=== PATIENT | female | born 1985 | race Caucasian/White ===

== ENCOUNTER 2024-02-24 07:27 | Observation (INO) ==
--- NOTE | 2024-02-24 07:55 | Emergency Department Note ---
History of Present Illness General Chief complaint: Urinary Symptoms Stated complaint: HIGH FEVER,PAIN LFT SIDE,LEAKING URINE,COUGH Time Seen by Provider: 02/24/24 07:40 History of Present Illness Maximum Pain Intensity: 9 This is a 38-year-old female that presents to the emergency department via private vehicle with complaints of "high fever, left flank pain, leaking urine, cough". Patient presents to us today for evaluation of feeling unwell since this past Thursday. She notes she began with a high fever, Tmax 104 followed by cough, chest discomfort/congestion, pain radiating into her back with a deep breath, left lower flank pain and noting also to be leaking urine. She denies any lower extremity weakness. She denies any bowel incontinence. She denies any numbness/tingling in genital region. The patient denies any abdominal pain. The patient is very concerned as she notes that her grandmother just of some sort of blockage causing sepsis in the recent past. Current pain 9/10. She notes history of Lyme disease previously. History of cholecystectomy, C- section. She notes possible Augmentin allergy. Home Medications Medication Instructions Recorded Confirmed Type meclizine 12.5 mg tablet 12.5 mg PO BID PRN vertigo #30 tabs 11/18/23 02/24/24 Rx multivitamin 1 tab PO DAILY 11/18/23 02/24/24 History Beef Organ Supplement 1 tab PO DIRECTED 02/24/24 02/24/24 History Green Supplement 1 tab PO DIRECTED 02/24/24 02/24/24 History acetaminophen 500 mg tablet 500 mg PO Q6H PRN Pain 02/24/24 02/24/24 History cholecalciferol (vitamin D3) 1,250 50,000 unit PO WK 02/24/24 02/24/24 History mcg (50,000 unit) capsule fluticasone propionate 50 1 spray intranasal DAILY PRN 02/24/24 02/24/24 History mcg/actuation nasal allergies spray,suspension (Flonase Allergy Relief) ibuprofen 200 mg tablet 200 mg PO Q6H PRN Pain 02/24/24 02/24/24 History ipratropium bromide 21 mcg (0.03 2 spray intranasal TID PRN 02/24/24 02/24/24 History %) nasal spray allergies Allergies Allergy/AdvReac Type Severity Reaction Status Date / Time clavulanic acid AdvReac Intermediate Itching Verified 12/03/23 13:31 Sulfa (Sulfonamide AdvReac Mild Itching Verified 12/03/23 07:59 Antibiotics) Past Med/Surg History Problem List (Updated 02/24/24 @ 16:46 by Michael Tsang PA-C) Left flank pain (Acute) Urinary incontinence (Acute) Febrile illness (Acute) Hypercholesteremia Prediabetes Vitamin D deficiency Cobalamin deficiency Vertigo Medical History Hx gestational diabetes History of Lyme disease Surgical History S/P LASIK surgery of both eyes History of cholecystectomy H/O wisdom tooth extraction History of Family History Aunt Breast cancer Grandfather (Maternal) Cancer Aunt Ovarian cancer Social History Smoking Status: Never smoker Tobacco Type: Cigarettes and E-cigarettes / Vaping Age Started Using Tobacco: 16; Age Quit Using Tobacco: 36; packs per day: 0.25; Cigarettes Per Day: 5; Second Hand Exposure: Yes (Grandparents smoked. 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 ) Diet: regular caffeine: Yes during the past year weight has: remained stable Dental Care, Regularly: Yes Physical Activity Frequency: Daily Physical Activity Frequency Comment: Has little kids constantly moving. Seatbelt Use: always Sunscreen Use: Yes Do you think of yourself as: straight/heterosexual Sexual Activity: has been sexually active within the last 12 months Gender Identity: Female Assistive Devices: None Review of Systems A total of 10 systems reviewed and were otherwise negative Physical Exam Vital Signs Vital Signs - 24 hr 02/24/24 07:33 02/24/24 08:11 02/24/24 08:21 Temperature 36.8 C Temperature Source Oral Pulse Rate 114 H 102 H Pulse Rate [Apical] 94 H Pulse Rate from SpO2 Sensor Pulse Rhythm Regular Pulse Strength Normal Respiratory Rate 20 20 Respiratory Effort / Characteristics Non-Labored Spontaneous Non-Labored Respiratory Depth Normal Normal Respiratory Pattern Regular Blood Pressure 139/75 Blood Pressure [Right Arm] 120/79 Blood Pressure Mean 96 Blood Pressure Mean [Right Arm] 92 Pulse Oximetry 96 97 Oxygen Delivery Method Room Air Room Air Sepsis Recent Fever Within 48 Hours No Sepsis New/Unexplained Change in Mental Status N/A Sepsis Action Taken by Nursing No Action Required 02/24/24 10:16 02/24/24 10:35 02/24/24 11:03 Temperature 37.1 C Temperature Source Oral Pulse Rate 99 H Pulse Rate [Apical] 118 H 103 H Pulse Rate from SpO2 Sensor Pulse Rhythm Pulse Strength Respiratory Rate 20 16 20 Respiratory Effort / Characteristics Non-Labored Non-Labored Respiratory Depth Normal Normal Respiratory Pattern Blood Pressure 131/86 Blood Pressure [Right Arm] 119/95 128/84 Blood Pressure Mean 101 Blood Pressure Mean [Right Arm] 103 98 Pulse Oximetry 98 98 98 Oxygen Delivery Method Room Air Room Air Sepsis Recent Fever Within 48 Hours Sepsis New/Unexplained Change in Mental Status Sepsis Action Taken by Nursing 02/24/24 11:33 02/24/24 13:27 02/24/24 14:06 Temperature Temperature Source Pulse Rate 96 H 101 H 102 H Pulse Rate [Apical] Pulse Rate from SpO2 Sensor 97 H 101 H Pulse Rhythm Pulse Strength Respiratory Rate 17 15 22 Respiratory Effort / Characteristics Respiratory Depth Respiratory Pattern Blood Pressure 124/83 119/76 122/86 Blood Pressure [Right Arm] Blood Pressure Mean 96 90 98 Blood Pressure Mean [Right Arm] Pulse Oximetry 99 96 97 Oxygen Delivery Method Sepsis Recent Fever Within 48 Hours Sepsis New/Unexplained Change in Mental Status Sepsis Action Taken by Nursing VITAL SIGNS - Vital signs and nursing notes were reviewed. Overall stable and afebrile, tachycardic. GENERAL - 38-year-old female appearing her stated age who is in no acute distress. Communicates well with provider and answers questions appropriately. SKIN - Without rashes. HEAD - NC/AT. EYES - PERRL with EOMI bilaterally. Sclera anicteric. EARS - No deformities of external structures noted on gross examination bilaterally. External auditory canals without discharge or otorrhea. Tympanic membranes pearly venegas without retraction or bulging. No fluid or purulent material visualized behind the TM. Handle of malleus, umbo, cone of light, pars tensa/flaccid all easily visualized. NOSE - Midline and without cyanosis. No epistaxis or purulent drainage noted. Septum midline without deviation or septal hematoma noted. MOUTH/OROPHARYNX - Without perioral cyanosis. NECK - Neck with FROM. No nuchal rigidity. LUNGS - Chest wall symmetric without accessory muscle use, intercostals retractions, or central cyanosis. Normal vesicular breath sounds CTA B/L. No wheezes, rales, or rhonchi appreciated. CARDIAC - tachycardic ABDOMEN - Abdominal contour normal without pulsations or visible masses. BS normoactive all four quadrants. No tenderness, palpable masses, hepatosplenomegaly, or ascites noted. EXTREMITIES - No clubbing or peripheral cyanosis. +5/5 strength noted in UE/LE bilaterally. NEUROLOGIC - Cranial nerves grossly intact. Patellar reflexes within normal limits. Patient ambulatory. She is able to axial load and ambulate independently. PSYCH -alert, oriented and pleasant on exam Course Administered Medications Discontinued Medications Gadobutrol (Gadobutrol 65ml Vial) 8.5 ml IV ONCE ONE Stop: 02/24/24 13:01 Last Admin: 02/24/24 13:01 Dose: 8.5 ml Documented By: XIANG Sodium Chloride (Nss) 1,000 mls @ 999 mls/hr IV .Q1H1M ONE Stop: 02/24/24 08:43 Last Infusion: 02/24/24 09:32 Dose: Infused Documented By: Admin: 02/24/24 08:11 Dose: 999 mls/hr Documented By: HIMANSHU Sodium Chloride (Nss) 1,000 mls @ 999 mls/hr IV .Q1H1M ONE Stop: 02/24/24 11:31 Last Infusion: 02/24/24 13:15 Dose: Infused Documented By: Admin: 02/24/24 10:35 Dose: 999 mls/hr Documented By: JESUSITA Ioversol (Optiray 320 125ml) 112 ml IV ONCE ONE Stop: 02/24/24 09:39 Last Admin: 02/24/24 09:39 Dose: 112 ml Documented By: KATTY Ketorolac Tromethamine (Ketorolac Tromethamine 15 Mg/Ml Vial) 10 mg IV NOW ONE Stop: 02/24/24 10:59 Last Admin: 02/24/24 11:24 Dose: 10 mg Documented By: GEORGE Lorazepam (Lorazepam 1 Mg Tab) 0.5 mg SL NOW STA Stop: 02/24/24 10:59 Last Admin: 02/24/24 11:23 Dose: 0.5 mg Documented By: GEORGE Medical Decision Making Laboratory Data 02/24/24 08:25 02/24/24 08:25 Lab Results 02/24/24 02/24/24 02/24/24 Range/Units 08:10 08:11 08:25 WBC 7.35 (4.8-10.8) K/ul RBC 4.66 (4.20-5.40) M/uL Hgb 14.1 (12.0-16.0) g/dl Hct 41.8 (37.0-47.0) % MCV 89.7 (80.0-100.0) fL MCH 30.3 (25.0-34.0) pg MCHC 33.7 (32.0-36.0) g/dL RDW Std Deviation 44.4 (36.4-46.3) fL RDW Coeff of Anuj 13.6 (11.5-14.5) % Plt Count 245 (130-400) K/uL MPV 9.6 (9.4-12.4) fL Immature Gran % (Auto) 0.4 % Neut % (Auto) 75.2 % Lymph % (Auto) 18.2 % Preble % (Auto) 6.0 % Eos % (Auto) 0.1 % Baso % (Auto) 0.1 % Neut # (Auto) 5.52 (1.40-6.50) K/uL Lymph # (Auto) 1.34 (1.20-3.40) K/uL Preble # (Auto) 0.44 (0.11-0.59) K/uL Eos # (Auto) 0.01 (0.00-0.50) K/uL Baso # (Auto) 0.01 (0.00-0.20) K/uL Immature Gran # (Auto) 0.03 (0.01-0.20) K/uL Peripher Smr Path Cons Sodium (136-145) mmol/L Potassium (3.5-5.1) mmol/L Chloride (98-107) mmol/L Carbon Dioxide (21-32) mmol/L Anion Gap (3-11) BUN (6-23) mg/dl Creatinine (0.6-1.2) mg/dl Est Cr Clr Drug Dosing ml/min eGFR BUN/Creatinine Ratio (10-20) Glucose (70-99(Fasting)) mg/dl Lactate (0.4-2.0) mmol/L Calcium (8.6-10.3) mg/dl Total Bilirubin (0.2-1.0) mg/dl AST (13-39) U/L ALT (7-52) U/L Alkaline Phosphatase (34-104) U/L Troponin I High Sens (0-14) pg/ml C-Reactive Protein (0-0.5) mg/dl Total Protein (6.0-8.3) gm/dl Albumin (3.4-5.0) gm/dl Globulin (2.5-4.0) gm/dl Albumin/Globulin Ratio (0.9-2) Procalcitonin (0-0.5) ng/ml HCG, Qual (Negative) Urine Color Yellow Urine Appearance Clear (Clear) Urine pH 6.5 (4.5-7.5) Ur Specific Vernon 1.023 (1.000-1.030) Urine Protein 1+ H (Negative) Urine Glucose (UA) Negative (Negative) Urine Ketones Negative (Negative) Urine Blood Negative (Negative) Urine Nitrite Negative (Negative) Urine Bilirubin Negative (Negative) Urine Urobilinogen Negative (Negative) Ur Leukocyte Esterase Negative (Negative) Urine WBC (Auto) 0-5 (0-5) /hpf Urine RBC (Auto) 0-2 (0-2) /hpf U Hyaline Cast (Auto) 0-2 (0-2) /lpf U Epithel Cells (Auto) 0-2 (0-2) /hpf Urine Bacteria (Auto) None Seen (None Seen) Adenovirus (PCR) Not Detected (NotDetected) B. pertussis DNA (PCR) Not Detected (NotDetected) B.parapertussis DNA PCR Not Detected (NotDetected) Lyme Disease Screen (Negative) C. pneumoniae DNA (PCR) Not Detected (NotDetected) Coronavirus OC43 (PCR) Not Detected (NotDetected) Coronavirus HKU1 (PCR) Not Detected (NotDetected) Coronavirus 229E (PCR) Not Detected (NotDetected) SARS-CoV-2 (PCR) Not Detected (NotDetected) Coronavirus NL63 (PCR) Not Detected (NotDetected) Monoscreen (Negative) Human Metapneumovir PCR Not Detected (NotDetected) Influenza Type A (PCR) Not Detected (NotDetected) Influenza Type B (PCR) Not Detected (NotDetected) M. pneumoniae (PCR) Not Detected (NotDetected) Parainfluenza 1 (PCR) Not Detected (NotDetected) Parainfluenza 2 (PCR) Not Detected (NotDetected) Parainfluenza 3 (PCR) Not Detected (NotDetected) Parainfluenza 4 (PCR) Not Detected (NotDetected) RSV (PCR) Not Detected (NotDetected) Entero/Rhino (PCR) Not Detected (NotDetected) Group A Strep (PCR) (NotDetected) 02/24/24 02/24/24 02/24/24 Range/Units 08:25 08:30 11:30 WBC (4.8-10.8) K/ul RBC (4.20-5.40) M/uL Hgb (12.0-16.0) g/dl Hct (37.0-47.0) % MCV (80.0-100.0) fL MCH (25.0-34.0) pg MCHC (32.0-36.0) g/dL RDW Std Deviation (36.4-46.3) fL RDW Coeff of Anuj (11.5-14.5) % Plt Count (130-400) K/uL MPV (9.4-12.4) fL Immature Gran % (Auto) % Neut % (Auto) % Lymph % (Auto) % Preble % (Auto) % Eos % (Auto) % Baso % (Auto) % Neut # (Auto) (1.40-6.50) K/uL Lymph # (Auto) (1.20-3.40) K/uL Preble # (Auto) (0.11-0.59) K/uL Eos # (Auto) (0.00-0.50) K/uL Baso # (Auto) (0.00-0.20) K/uL Immature Gran # (Auto) (0.01-0.20) K/uL Peripher Smr Path Cons Cancelled Sodium 136 (136-145) mmol/L Potassium 3.7 (3.5-5.1) mmol/L Chloride 103 (98-107) mmol/L Carbon Dioxide 26 (21-32) mmol/L Anion Gap 7 (3-11) BUN 9 (6-23) mg/dl Creatinine 0.70 (0.6-1.2) mg/dl Est Cr Clr Drug Dosing 118.3 ml/min eGFR 113.46 BUN/Creatinine Ratio 12.9 (10-20) Glucose 111 H (70-99(Fasting)) mg/dl Lactate 0.6 (0.4-2.0) mmol/L Calcium 9.1 (8.6-10.3) mg/dl Total Bilirubin 0.3 (0.2-1.0) mg/dl AST 18 (13-39) U/L ALT 17 (7-52) U/L Alkaline Phosphatase 90 (34-104) U/L Troponin I High Sens 6.3 (0-14) pg/ml C-Reactive Protein 11.28 H (0-0.5) mg/dl Total Protein 7.7 (6.0-8.3) gm/dl Albumin 4.2 (3.4-5.0) gm/dl Globulin 3.5 (2.5-4.0) gm/dl Albumin/Globulin Ratio 1.2 (0.9-2) Procalcitonin 0.11 (0-0.5) ng/ml HCG, Qual Negative (Negative) Urine Color Urine Appearance (Clear) Urine pH (4.5-7.5) Ur Specific Vernon (1.000-1.030) Urine Protein (Negative) Urine Glucose (UA) (Negative) Urine Ketones (Negative) Urine Blood (Negative) Urine Nitrite (Negative) Urine Bilirubin (Negative) Urine Urobilinogen (Negative) Ur Leukocyte Esterase (Negative) Urine WBC (Auto) (0-5) /hpf Urine RBC (Auto) (0-2) /hpf U Hyaline Cast (Auto) (0-2) /lpf U Epithel Cells (Auto) (0-2) /hpf Urine Bacteria (Auto) (None Seen) Adenovirus (PCR) (NotDetected) B. pertussis DNA (PCR) (NotDetected) B.parapertussis DNA PCR (NotDetected) Lyme Disease Screen Negative (Negative) C. pneumoniae DNA (PCR) (NotDetected) Coronavirus OC43 (PCR) (NotDetected) Coronavirus HKU1 (PCR) (NotDetected) Coronavirus 229E (PCR) (NotDetected) SARS-CoV-2 (PCR) (NotDetected) Coronavirus NL63 (PCR) (NotDetected) Monoscreen Negative (Negative) Human Metapneumovir PCR (NotDetected) Influenza Type A (PCR) (NotDetected) Influenza Type B (PCR) (NotDetected) M. pneumoniae (PCR) (NotDetected) Parainfluenza 1 (PCR) (NotDetected) Parainfluenza 2 (PCR) (NotDetected) Parainfluenza 3 (PCR) (NotDetected) Parainfluenza 4 (PCR) (NotDetected) RSV (PCR) (NotDetected) Entero/Rhino (PCR) (NotDetected) Group A Strep (PCR) NOT DETECTED (NotDetected) Imaging Data Radiologist's Impression: Abdomen/Pelvis CT 02/24/24 07:50 CT abd pelvis IV con only CLINICAL HISTORY: L flank pain, urinary incontinence, fever TECHNIQUE: Helical axial images of the abdomen and pelvis were obtained and displayed. Automated dose lowering techniques and/or adjustment according to patient size were utilized for this exam. This exam was performed with intravenous contrast. COMPARISON: None available at the time of this dictation. FINDINGS: Lower chest: For findings above the diaphragm, please see CT chest performed same day. Liver: Focal fatty changes are noted about the falciform ligament. Gallbladder and biliary tree: Patient is status post cholecystectomy. No intra- or extrahepatic biliary ductal dilation. Pancreas: Unremarkable, no focal lesions. Spleen: Unremarkable. Adrenals: Unremarkable. Kidneys and ureters: Nonobstructive nephrolithiasis is seen. No evidence of inhomogeneous enhancement to suggest pyelonephritis. Bladder: Unremarkable. Reproductive organs: Incidentally noted is a enhancing focus in the right adnexa which may represent an involuting cyst. Bowel: The appendix is normal. Lymph nodes Retroperitoneal: Unremarkable. Pelvic: Unremarkable. Mesenteric: Unremarkable. Peritoneum: Normal. Vessels: Unremarkable. Abdominal wall: Unremarkable. Bones: Degenerative changes in the visualized spine. IMPRESSION: No acute abnormalities. No evidence of obstructive stone in the left kidney and no evidence of pyelonephritis. Nonobstructive nephrolithiasis is seen. ACT 112: Negative or not required by law. Electronically signed by: Logan Brantley M.D. 02/24/2024 10:13 AM Chest CTA 02/24/24 07:50 CT ANGIOGRAPHY OF THE CHEST, PULMONARY EMBOLUS PROTOCOL CLINICAL HISTORY: Left flank pain, chest pain, pain with deep breath. COMPARISON STUDY: No previous studies for comparison. TECHNIQUE: Following IV administration of 112 mL of Optiray, helical axial images of the chest were obtained utilizing the pulmonary embolus protocol. Maximal intensity projections and sagittal and coronal reformats were viewed on an independent 3D workstation. IV contrast was administered without complication. Automated exposure control was utilized for the study. A dose lowering technique was utilized adhering to the principles of ALARA. CT DOSE: 2253.8 mGy.cm FINDINGS: No pulmonary emboli are identified. There is no thoracic aortic dissection. Size of the heart is normal. No enlarged axillary, mediastinal or hilar lymph nodes are present. There is no consolidation to suggest pneumonia. No pneumothorax or pleural effusion is present. Ground glass opacities within lungs favor atelectasis. No acute fractures within the bony thorax are present. Abdomen and pelvis CT will be reported separately. The gallbladder is surgically absent. IMPRESSION: 1. No pulmonary emboli identified. 2. No acute intrathoracic findings. ACT 112: Negative or not required by law. Electronically signed by: Igor Bernardo M.D. 02/24/2024 10:16 AM Lumbar Spine MRI 02/24/24 10:31 MR lumbar spine wo/w con CLINICAL HISTORY: 38 years-old Female with Fever, back pain, urinary incontinence. Acute mid back pain with fever COMPARISON: CT abdomen and pelvis of same day, MRI thoracic spine of same day TECHNIQUE: Multiplanar, multi sequence MRI of the lumbar spine was performed with and without intravenous contrast. FINDINGS: The lumbar alignment is normal. The vertebral body heights are normal. There is no T1 fracture line or marrow replacement process. The conus terminates at L1. The visualized spinal cord and cauda equina are normal. There is no paraspinal edema, mass, or prevertebral fluid collection. The intra-abdominal structures are grossly unremarkable, dictated separately on the same day CT study. No abnormal enhancement. Minimal lumbar levoscoliosis of a few degrees. There is minimal multilevel spondylitic spurring and facet arthrosis. T12-L1: No central canal or neural foraminal stenosis. L1-L2: No central canal or neural foraminal stenosis. L2-L3: No central canal or neural foraminal stenosis. L3-L4: No central canal or neural foraminal stenosis. L4-L5: Mild disc desiccation with spondylitic spurring. Small posterior annular disc bulge is present along with ligamentum flavum flavum thickening, and facet arthrosis with trace facet effusions. Central canal and right neural foramen are patent. Mild left foraminal stenosis. L5-S1: No central canal or neural foraminal stenosis. IMPRESSION: 1. Mild discogenic degeneration at L4-L5 with resultant mild left foraminal stenosis. 2. Patent central canal. 3. No abnormal enhancement, bone marrow or soft tissue edema. ACT 112: Negative or not required by law. The above report was generated using voice recognition software. It may contain grammatical, syntax or spelling errors. Electronically signed by: Vicente Becerril M.D. 02/24/2024 1:57 PM Thoracic Spine MRI 02/24/24 11:25 MR thoracic spine wo/w con HISTORY: 38 years-old Female back pain, fever, r/o abscess. TTP T6-T10 acute mid back pain with fever COMPARISON: MR lumbar spine of same day, CTA chest of same day TECHNIQUE: Multiplanar multisequence MRI of the thoracic spine was obtained with and without IV contrast FINDINGS: Study is mildly motion degraded. Conus medullaris terminates at the L1 level. There is mild cystic dilation of the central thoracic spinal cord at T9-T10 extending for a length of 2.8 cm in length, 1 x 1 mm in AP and transverse dimension. No acute fracture, subluxation, endplate erosion or marrow replacing process. No epidural or paraspinal fluid collections. The intervertebral disc spaces are well preserved. No significant annular disc bulging, central canal or foraminal narrowing. No abnormal enhancement. IMPRESSION: 1. Unremarkable exam. No MR evidence of acute discitis/osteomyelitis. 2. No significant degenerative changes or abnormal enhancement. ACT 112: Negative or not required by law. The above report was generated using voice recognition software. It may contain grammatical, syntax or spelling errors. Electronically signed by: Vicente Becerril M.D. 02/24/2024 1:42 PM MDM Narrative Patient was seen and evaluated as above in room B02. Review was performed of triage nursing notes and vital signs. Patient presents for evaluation of fever, cough, left flank pain, urinary incontinence. Patient ill-appearing. Tachycardic on arrival. IV access with established. Labs are drawn. IV hydration ordered. CTA chest as well as abdomen/pelvis with IV contrast was ordered. Results as above. These were essentially negative. Pain managed with IV Toradol. EKG reveals normal sinus rhythm at a rate of 92 bpm. QTc 430. QRS 84. No ST elevation. Urinalysis does not suggest infection. BioFire negative. Patient does not appear to be retaining urine. Labs reveal no leukocytosis or concerning anemia. No emergent metabolic disturbance. Troponin negative. I do believe that MRI of the L-spine is warranted with and without contrast noting fever and urinary incontinence. Plan is admission at this time for further assessment. Blood culture pending. Case discussed with the hospitalist. Please refer to further documentation regarding her stay. Will temporarily hold on antibiotics pending MRI result. GCS: 15 In the evaluation and treatment of this patient the following differential diagnoses were entertained: Bacteremia, discitis, viral URI, pneumonia, PE, kidney stone, UTI, among others. Impression & Plan Febrile illness, Urinary incontinence, Left flank pain Discharge Plan Visit Data Chief Complaint: Urinary Symptoms Stated Complaint: HIGH FEVER,PAIN LFT SIDE,LEAKING URINE,COUGH ED Provider: José Miguel Munoz ED Midlevel Provider: Michael Tsang Discharge Problem: Febrile illness, Urinary incontinence, Left flank pain Patient Disposition: Admitted As Inpatient Discharge Instructions Interventions: ED Discharge Assessment Last Done: 02/24/24 16:08
[2024-02-24] MEDS: SODIUM CHLORIDE 0.9% 1,000 ML IV ONE ×2 (08:11→10:35)
[2024-02-24 08:57] LABS: Appearance Urine Clear (Clear); Bacteria Urine Automated None Seen (None Seen); Bilirubin Urine Negative (Negative); Blood Urine Negative (Negative); Cast Urine Automated 0-2 /lpf (0-2); Color Urine Yellow; Epithelial Cell Urine Auto 0-2 /hpf (0-2); Glucose Urine UA Negative (Negative); Ketones Urine Negative (Negative); Leukocyte Esterase Urine Negative (Negative); Nitrite Urine Negative (Negative); Protein Urine 1+ (Negative); RBC Urine Automated 0-2 /hpf (0-2); Specific Gravity Urine 1.023 (1.000-1.030); Urobilinogen Urine Negative (Negative); WBC Urine Automated 0-5 /hpf (0-5); pH Urine 6.5 (4.5-7.5)
[2024-02-24 09:07] LABS: Basophils # (auto) 0.01 K/uL (0.00-0.20); Basophils % (auto) 0.1 %; Eosinophils # (auto) 0.01 K/uL (0.00-0.50); Eosinophils % (auto) 0.1 %; Hematocrit (blood only) 41.8 % (37.0-47.0); Hemoglobin 14.1 g/dl (12.0-16.0); Immature Granulocytes # (auto) 0.03 K/uL (0.01-0.20); Immature Granulocytes % (auto) 0.4 %; Lymphocytes # (auto) 1.34 K/uL (1.20-3.40); Lymphocytes % (auto) 18.2 %; Mean Corpuscular Hemoglobin 30.3 pg (25.0-34.0); Mean Corpuscular Hgb Conc 33.7 g/dL (32.0-36.0); Mean Corpuscular Volume 89.7 fL (80.0-100.0); Mean Platelet Volume 9.6 fL (9.4-12.4); Monocytes # (auto) 0.44 K/uL (0.11-0.59); Neutrophils # (auto) 5.52 K/uL (1.40-6.50); Neutrophils % (auto) 75.2 %; Platelet Count 245 K/uL (130-400); RDW Coefficient of Variation 13.6 % (11.5-14.5); RDW Standard Deviation 44.4 fL (36.4-46.3); Red Blood Count 4.66 M/uL (4.20-5.40); White Blood Count 7.35 K/ul (4.8-10.8)
[2024-02-24 09:18] LABS: Pregnancy Test, Serum Negative (Negative)
[2024-02-24 09:29] LABS: Albumin Globulin Ratio 1.2 (0.9-2); Albumin Level 4.2 gm/dl (3.4-5.0); BUN Creatinine Ratio 12.9 (10-20); Bilirubin,Total 0.3 mg/dl (0.2-1.0); Calcium 9.1 mg/dl (8.6-10.3); Creatinine Clr Calc Pharmacy 118.3 ml/min; Globulin 3.5 gm/dl (2.5-4.0); Potassium 3.7 mmol/L (3.5-5.1); Total Protein 7.7 gm/dl (6.0-8.3)
[2024-02-24 09:36] LABS: Troponin I High Sensitivity 6.3 pg/ml (0-14)
[2024-02-24] MEDS: OPTIRAY 320 125ml IV ONE (09:39)
[2024-02-24 09:43] LABS: Adenovirus PCR Not Detected (NotDetected); Bordetella parapertussis PCR Not Detected (NotDetected); Bordetella pertussis PCR Not Detected (NotDetected); Chlamydia pneumoniae PCR Not Detected (NotDetected); Coronavirus 229E PCR Not Detected (NotDetected); Coronavirus CoV-2 (COVID19)PCR Not Detected (NotDetected); Coronavirus HKU1 PCR Not Detected (NotDetected); Coronavirus NL63 PCR Not Detected (NotDetected); Coronavirus OC43PCR Not Detected (NotDetected); Human Metapneumovirus PCR Not Detected (NotDetected); Influenza A PCR Not Detected (NotDetected); Influenza B PCR Not Detected (NotDetected); Mycoplasma pneumoniae PCR Not Detected (NotDetected); Parainfluenza Virus 1 PCR Not Detected (NotDetected); Parainfluenza Virus 2 PCR Not Detected (NotDetected); Parainfluenza Virus 3 PCR Not Detected (NotDetected); Parainfluenza Virus 4 PCR Not Detected (NotDetected); Respiratory Syncytial VirusPCR Not Detected (NotDetected); Rhinovirus/Enterovirus PCR Not Detected (NotDetected)
--- NOTE | 2024-02-24 10:14 | CT Scan Report ---
CT abd pelvis IV con only CLINICAL HISTORY: L flank pain, urinary incontinence, fever TECHNIQUE: Helical axial images of the abdomen and pelvis were obtained and displayed. Automated dose lowering techniques and/or adjustment according to patient size were utilized for this exam. This e xam was performed with intravenous contrast. COMPARISON: None available at the time of this dictation. FINDINGS: Lower chest: For findings above the diaphragm, please see CT chest performed same day. Liver: Focal fatty changes are noted about the falciform ligament. Gallbladder and biliary tree: Patient is status post cholecystectomy. No intra- or extrahepatic bilia ry ductal dilation. Pancreas: Unremarkable, no focal lesions. Spleen: Unremarkable. Adrenals: Unremarkable. Kidneys and ureters: Nonobstructive nephrolithiasis is seen. No evidence of inhomogeneous enhancement to suggest pyelonephritis. Bladder: Unremarkable. Reproductive organs: Incidentally noted is a enhancing focus in the right adnexa which may represent an involuting cyst. Bowel: The appendix is normal. Lymph nodes Retroperitoneal: Unremarkable. Pelvic: Unremarkable. Mesenteric: Unremarkable. Peritoneum: Normal. Vessels: Unremarkable. Abdominal wall: Unremarkable. Bones: Degenerative changes in the visualized spine. IMPRESSION: No acute abnormalities. No evidence of obstructive stone in the left kidney and no evidence of pyelon ephritis. Nonobstructive nephrolithiasis is seen. ACT 112: Negative or not required by law. Electronically signed by: Logan Brantley M.D. 02/24/2024 10:13 AM
--- NOTE | 2024-02-24 10:18 | CT Scan Report ---
CT ANGIOGRAPHY OF THE CHEST, PULMONARY EMBOLUS PROTOCOL CLINICAL HISTORY: Left flank pain, chest pain, pain with deep breath. COMPARISON STUDY: No previous studies for comparison. TECHNIQUE: Following IV administration of 112 mL of Optiray, helical axial images of the chest were o btained utilizing the pulmonary embolus protocol. Maximal intensity projections and sagittal and cor onal reformats were viewed on an independent 3D workstation. IV contrast was administered without co mplication. Automated exposure control was utilized for the study. A dose lowering technique was ut ilized adhering to the principles of ALARA. CT DOSE: 2253.8 mGy.cm FINDINGS: No pulmonary emboli are identified. There is no thoracic aortic dissection. Size of the he art is normal. No enlarged axillary, mediastinal or hilar lymph nodes are present. There is no consol idation to suggest pneumonia. No pneumothorax or pleural effusion is present. Ground glass opacities within lungs favor atelectasis. No acute fractures within the bony thorax are present. Abdomen and pe lvis CT will be reported separately. The gallbladder is surgically absent. IMPRESSION: 1. No pulmonary emboli identified. 2. No acute intrathoracic findings. ACT 112: Negative or not required by law. Electronically signed by: Igor Bernardo M.D. 02/24/2024 10:16 AM
--- NOTE | 2024-02-24 10:59 | History & Physical Report ---
Date of Service February 24, 2024 Assessment & Plan (1) Febrile illness: Plan: Intermittent fever up to 104 F that started on Monday 02/19 She also endorses chills, night sweats, rigors, and a sharp pain in her left posterior rib cage with deep breaths Patient's initial labs and imaging appear reassuring/unremarkable No leukocytosis; negative procalcitonin and lactate Chest CTA without evidence of pulmonary embolism BioFire negative Monospot negative Strep PCR ordered, pending Tickborne panel/peripheral smear ordered, pending Blood cultures ordered, pending While patient's initial labs and imaging are reassuring/unremarkable, she does appear quite ill on clinical exam Will plan to admit patient on observation with blood cultures and lumbar/thoracic MRI still pending DDx on arrival includes viral illness and spinal infection (among other etiologies) Supportive care Acetaminophen as needed for pain/fever Toradol as needed for breakthrough pain A.m. CBC, BMP, CRP (2) Urinary incontinence: Plan: Patient reports she has been "dribbling" urine in the setting of her fever While she does have a h/o dribbling with coughing and sneezing (likely stress incontinence after having her children), she reports this is now occurring at rest without any provocation Patient denies saddle anesthesia A/P CT reveals no acute abnormalities or evidence of kidney stone/pyelonephritis Lumbar/thoracic MRI with and without contrast ordered, pending Plan Disposition: Obs - admit to [facility] telemetry Full code Regular diet VTE PPx: Low risk, encourage ambulation History of Present Illness Chief Complaint: Fever of unknown origin, urinary symptoms Primary Care Provider: SHAHANA Crowder Carolin is a 38-year-old female with PMH of vertigo, hypercholesteremia, and prediabetes. She presented on 02/23 for a febrile illness that developed on Monday 02/19. Her fever got up to 104 F on Thursday and lasted approximately 14 hours before breaking. She is then had intermittent fevers since this time. She has been rotating ibuprofen and Tylenol [id number] every 3-4 hours, which she is also taking for her back/left flank pain. She reports that taking deep breaths causes a sharp pain in her left middle back. No prior history of DVT/PE. No recent injuries to the chest wall or back to her knowledge. Additionally, she reports she has had some episodes of urinary incontinence; she has been "dribbling" urine since her fever started. She does have a history of leaking urine ever since she had her kids whenever she coughs or sneezes, however she specifically says that she has been dribbling urine without coughing and sneezing while she has been sick. She denies saddle anesthesia. While she does endorse generalized bodyaches, joint pain, and neck pain on the left side, she denies photophobia. Her children have recently been sick; her 8-main old recently got antibiotics for an ear infection, and her 4-year-old has been having a runny nose at daycare. She denies smoking, tobacco use, recent alcohol use. No supplemental oxygen or CPAP at baseline. She has had MRIs in the past and reports no metal in her body; no pacemaker. Patient is tachycardic around 103 bpm at time admission; vitals otherwise stable. ED course: NSS 1000 mL IV x 2 Toradol 10 mg IV Lorazepam 0.5 mg SL ROS: Patient endorses fever, chills, night-sweats, rigors, mild headaches, congestion, dry cough, chest pressure, back pressure, body aches, joint pain, pleuritic CP (causes "stabbing" pain in her left middle back, close to the bottom of her rib cage), nausea, and diarrhea (started this week). Patient denies lightheadedness, dizziness, rashes, tickbites, photophobia, hemoptysis, abdominal pain, vomiting, melena, blood in the urine/stool, burning with urination, or numbness/tingling in the arms or legs. Allergies Allergy/AdvReac Type Severity Reaction Status Date / Time clavulanic acid AdvReac Intermediate Itching Verified 12/03/23 13:31 Sulfa (Sulfonamide AdvReac Mild Itching Verified 12/03/23 07:59 Antibiotics) Home Medications Medication Instructions Recorded Confirmed Type meclizine 12.5 mg tablet 12.5 mg PO BID PRN vertigo #30 tabs 11/18/23 02/24/24 Rx multivitamin 1 tab PO DAILY 11/18/23 02/24/24 History Beef Organ Supplement 1 tab PO DIRECTED 02/24/24 02/24/24 History Green Supplement 1 tab PO DIRECTED 02/24/24 02/24/24 History acetaminophen 500 mg tablet 500 mg PO Q6H PRN Pain 02/24/24 02/24/24 History cholecalciferol (vitamin D3) 1,250 50,000 unit PO WK 02/24/24 02/24/24 History mcg (50,000 unit) capsule fluticasone propionate 50 1 spray intranasal DAILY PRN 02/24/24 02/24/24 History mcg/actuation nasal allergies spray,suspension (Flonase Allergy Relief) ibuprofen 200 mg tablet 200 mg PO Q6H PRN Pain 02/24/24 02/24/24 History ipratropium bromide 21 mcg (0.03 2 spray intranasal TID PRN 02/24/24 02/24/24 History %) nasal spray allergies Past Med/Surg History Problem List (Updated 02/24/24 @ 11:49 by Tremaine Puckett PA-C) Urinary incontinence Febrile illness Hypercholesteremia Prediabetes Vitamin D deficiency Cobalamin deficiency Vertigo Medical History Hx gestational diabetes History of Lyme disease Surgical History S/P LASIK surgery of both eyes History of cholecystectomy H/O wisdom tooth extraction History of Family History Aunt Breast cancer Grandfather (Maternal) Cancer Aunt Ovarian cancer Social History Smoking Status: Never smoker Tobacco Type: Cigarettes and E-cigarettes / Vaping Age Started Using Tobacco: 16; Age Quit Using Tobacco: 36; packs per day: 0.25; Cigarettes Per Day: 5; Second Hand Exposure: Yes (Grandparents smoked. ); Do You Dip or Chew Tobacco: No; Hx Alcohol Use: Yes Alcohol type: beer Alcohol Intake Frequency: Monthly or Less Hx Substance Use: No Preferred Language: Mexican Communication Ability: Effective Visual Impairment: No Limitations Hearing Ability: Normal Gage Designer Required: No Beliefs That Will Affect Care: None marital status: Single Current Living Situation: Family and Significant Other current occupational status: employed How many Children do You have: 2 Feels Safe at Home: Yes Childhood Exposure to Second-Hand Smoke: Yes (Grandparents smoked. ) Diet: regular caffeine: Yes during the past year weight has: remained stable Dental Care, Regularly: Yes Physical Activity Frequency: Daily Physical Activity Frequency Comment: Has little kids constantly moving. Seatbelt Use: always Sunscreen Use: Yes Do you think of yourself as: straight/heterosexual Sexual Activity: has been sexually active within the last 12 months Gender Identity: Female Assistive Devices: None Review of Systems Review of Systems: See HPI above Physical Exam Physical Exam: General: no acute distress; pleasant affect; anxious; father at bedside; non- toxic appearing; well-nourished; cooperative; SpO2 90% on RA HEENT: normocephalic, atraumatic; no scleral icterus; PERRLA; vision and hearing grossly intact Neck: supple; no lymphadenopathy; trachea midline Skin: warm, dry without signs of tenting; no cyanosis; no rashes, bruising, lesions, or erythema noted CV: chest wall NTP; RRR; S1/S2 normal; no murmurs/rubs/gallops; pulses intact and symmetric at radial, DP, and PT Lungs: no acute respiratory distress; symmetrical chest wall expansion; clear breath sounds across all lung quintero w/o adventitious sounds; no wheezing ABD: Soft, NTP; BS present; no rebound/guarding Back: No rashes, erythema, or bruising appreciated in the back; left middle/lower thoracic spine is mildly TTP MSK: no tics or fasciculations; no edema noted in the LEs b/l, nonerythematous; patient demonstrates the ability to wiggle toes Neuro: A&Ox3; normal mood and affect; fluent speech; no focal deficits; patient reports that sensation is intact and symmetric in the lower extremities bilaterally assessed via light touch Results & Data Results & Data Vital Signs (Past 12 Hours) Vital Signs Temp Pulse Pulse Resp BP BP Pulse Ox 02/24/24 10:35 37.1 C 103 H 16 128/84 98 02/24/24 10:16 118 H 20 119/95 98 02/24/24 08:21 102 H 02/24/24 08:11 94 H 20 120/79 97 02/24/24 07:33 36.8 C 114 H 20 139/75 96 O2 Del Method 02/24/24 10:35 Room Air 02/24/24 10:16 Room Air 02/24/24 08:21 02/24/24 08:11 Room Air 02/24/24 07:33 Room Air Laboratory Results Abnormal lab results 02/24/24 02/24/24 Range/Units 08:11 08:25 Glucose 111 H (70-99(Fasting)) mg/dl Urine Protein 1+ H (Negative) Diagnostic Findings Abdomen/Pelvis CT 02/24/24 07:50 CT abd pelvis IV con only CLINICAL HISTORY: L flank pain, urinary incontinence, fever TECHNIQUE: Helical axial images of the abdomen and pelvis were obtained and displayed. Automated dose lowering techniques and/or adjustment according to patient size were utilized for this exam. This exam was performed with intravenous contrast. COMPARISON: None available at the time of this dictation. FINDINGS: Lower chest: For findings above the diaphragm, please see CT chest performed same day. Liver: Focal fatty changes are noted about the falciform ligament. Gallbladder and biliary tree: Patient is status post cholecystectomy. No intra- or extrahepatic biliary ductal dilation. Pancreas: Unremarkable, no focal lesions. Spleen: Unremarkable. Adrenals: Unremarkable. Kidneys and ureters: Nonobstructive nephrolithiasis is seen. No evidence of inhomogeneous enhancement to suggest pyelonephritis. Bladder: Unremarkable. Reproductive organs: Incidentally noted is a enhancing focus in the right adnexa which may represent an involuting cyst. Bowel: The appendix is normal. Lymph nodes Retroperitoneal: Unremarkable. Pelvic: Unremarkable. Mesenteric: Unremarkable. Peritoneum: Normal. Vessels: Unremarkable. Abdominal wall: Unremarkable. Bones: Degenerative changes in the visualized spine. IMPRESSION: No acute abnormalities. No evidence of obstructive stone in the left kidney and no evidence of pyelonephritis. Nonobstructive nephrolithiasis is seen. ACT 112: Negative or not required by law. Electronically signed by: Logan Brantley M.D. 02/24/2024 10:13 AM Chest CTA 02/24/24 07:50 CT ANGIOGRAPHY OF THE CHEST, PULMONARY EMBOLUS PROTOCOL CLINICAL HISTORY: Left flank pain, chest pain, pain with deep breath. COMPARISON STUDY: No previous studies for comparison. TECHNIQUE: Following IV administration of 112 mL of Optiray, helical axial images of the chest were obtained utilizing the pulmonary embolus protocol. Maximal intensity projections and sagittal and coronal reformats were viewed on an independent 3D workstation. IV contrast was administered without complication. Automated exposure control was utilized for the study. A dose lowering technique was utilized adhering to the principles of ALARA. CT DOSE: 2253.8 mGy.cm FINDINGS: No pulmonary emboli are identified. There is no thoracic aortic dissection. Size of the heart is normal. No enlarged axillary, mediastinal or hilar lymph nodes are present. There is no consolidation to suggest pneumonia. No pneumothorax or pleural effusion is present. Ground glass opacities within lungs favor atelectasis. No acute fractures within the bony thorax are present. Abdomen and pelvis CT will be reported separately. The gallbladder is surgically absent. IMPRESSION: 1. No pulmonary emboli identified. 2. No acute intrathoracic findings. ACT 112: Negative or not required by law. Electronically signed by: Igor Bernardo M.D. 02/24/2024 10:16 AM ECG Additional Comments: ECG revealed NSR at 92 bpm; QTc 430 Code Status & VTE Plan Code Status Full code Palomo (sEme): [phone] VTE Prophylaxis Plan VTE Prophylaxis will be ordered: Yes Supervising Physician Co-Signing Physician Notes Carolin is a 38-year-old female with history of hyperlipidemia, prediabetes who presents w/ tmax 104 of several days. Cough, chest pain, pain into back, new urinary incontinence. Patient seen and examined, chart reviewed, case discussed with Tremaine Puckett PA-C and I agree with the assessment and plan as above except as otherwise noted Labs and images reviewed Patient seen the bedside with her father present. Her father reports that she has had a cough and unwellness for around 6 weeks, has 2 children, one less than a year and 1 4 years old in daycare who have also been sick over this period. Carolin reports her current illness has been for several days with worsening cough temperature of 104, some left-sided back ache and new incontinence without dysuria/polyuria/burning. Her father reports that her cough seems to been present and worsened over the last 6 weeks, Carolin reports that she is felt worse in the last few days. She is not sure if she has had any waxing/waning course in the last 6 weeks, notes that her son has been very congested and with a cough at home. She does not have any photosensitivity/phono sensitivity/nuchal rigidity. She is able to bend her chin to her chest without pain or discomfort. At about the level of T6-T10 she has some left perimuscular tenderness, there is no midline spinal tenderness present. New urinary incontinence. She reports she has dribbling in the last few days which is worsened with coughing but notes that the dribbling/incontinence is also present when she is not coughing and this is new for her. No saddle anesthesia. No lower extremity numbness/tingling/weakness. No upper extremity numbness/tingling/weakness. Posterior oropharynx is with prominent right tonsillar pillar and mild edema but no exudate/erythema is noted. No airway compromise. No stridor or wheezing. Lungs are clear. No rash. Febrile illness. - Tmax 104, chest discomfort/congestion, deep pain with breathing. Acute urinary incontinence. No saddle anesthesia. BioFire is negative CTchest no lobar pneumonia seen. No PE. Some GGO likely atelectasis but from which viral pneumonia is not excluded Patient is clinically ill-appearing at the bedside. While her vital signs are stable she does not leukocytosis and has a detectable but technically normal procalcitonin she appears ill is tachycardic at the bedside and has had ongoing fever of 104 for several days and possible illness up to 6 weeks. Given her children are in daycare possibility for multiple viral URIs is possible however given poor p.o. intake, ill appearance with rigors on ER assessment, and negative BioFire we will follow for additional workup and blood cultures. Antibiotics deferred until clear source is identified. She does not have photosensitivity, nuchal rigidity suggestive of meningitis. She does have new urinary incontinence which is not just associated with cough/stress incontinence in addition to back pain. Given this a MRI of her lumbar spine was ordered, and as she has had right paraspinal tenderness to palpation at T6-T10 extended up to the thoracic spine to exclude abscess. CRP pending Strep PCR pending - CTA/P with IV contrast: No evidence of Lakhwinder, obstructive nephrolithiasis is seen. Nonobstructive nephrolithiasis is noted Lactic acid normal Blood cultures pending PG Care Time/CCT Total # of Minutes Spent Total Time Spent with Patient: Total time spent is greater than 50% in coordination of care (as documented) at patient's floor/unit and/or counseling patient: Coding [place] [address] INT INP/OBS CARE 3/75MIN Patient Type Established Medical Decision Making High Complexity Diagnoses Febrile illness R50.9 Urinary incontinence R32
[2024-02-24] MEDS: LORazepam 1 MG TAB SL STA (11:23)
[2024-02-24] MEDS: KETOROLAC TROMETHAMINE 15 MG/ML VIAL IV ONE (11:24)
[2024-02-24 12:25] LABS: C Reactive Protein 11.28 mg/dl (0-0.5)
[2024-02-24] MEDS: GADOBUTROL 65ML VIAL IV ONE (13:01)
--- NOTE | 2024-02-24 13:44 | Magnetic Resonance Report ---
MR thoracic spine wo/w con HISTORY: 38 years-old Female back pain, fever, r/o abscess. TTP T6-T10 acute mid back pain with fev er COMPARISON: MR lumbar spine of same day, CTA chest of same day TECHNIQUE: Multiplanar multisequence MRI of the thoracic spine was obtained with and without IV contr ast FINDINGS: Study is mildly motion degraded. Conus medullaris terminates at the L1 level. There is mild cystic di lation of the central thoracic spinal cord at T9-T10 extending for a length of 2.8 cm in length, 1 x 1 mm in AP and transverse dimension. No acute fracture, subluxation, endplate erosion or marrow repla cing process. No epidural or paraspinal fluid collections. The intervertebral disc spaces are well pr eserved. No significant annular disc bulging, central canal or foraminal narrowing. No abnormal enhan cement. IMPRESSION: 1. Unremarkable exam. No MR evidence of acute discitis/osteomyelitis. 2. No significant degenerative changes or abnormal enhancement. ACT 112: Negative or not required by law. The above report was generated using voice recognition software. It may contain grammatical, syntax o r spelling errors. Electronically signed by: Vicente Becerril M.D. 02/24/2024 1:42 PM
--- NOTE | 2024-02-24 13:58 | Magnetic Resonance Report ---
MR lumbar spine wo/w con CLINICAL HISTORY: 38 years-old Female with Fever, back pain, urinary incontinence. Acute mid back pa in with fever COMPARISON: CT abdomen and pelvis of same day, MRI thoracic spine of same day TECHNIQUE: Multiplanar, multi sequence MRI of the lumbar spine was performed with and without intrave nous contrast. FINDINGS: The lumbar alignment is normal. The vertebral body heights are normal. There is no T1 fracture line or marrow replacement process. The conus terminates at L1. The visualized spinal cord and cauda eq uina are normal. There is no paraspinal edema, mass, or prevertebral fluid collection. The intra-ab dominal structures are grossly unremarkable, dictated separately on the same day CT study. No abnorma l enhancement. Minimal lumbar levoscoliosis of a few degrees. There is minimal multilevel spondylitic spurring and facet arthrosis. T12-L1: No central canal or neural foraminal stenosis. L1-L2: No central canal or neural foraminal stenosis. L2-L3: No central canal or neural foraminal stenosis. L3-L4: No central canal or neural foraminal stenosis. L4-L5: Mild disc desiccation with spondylitic spurring. Small posterior annular disc bulge is presen t along with ligamentum flavum flavum thickening, and facet arthrosis with trace facet effusions. Yaz tral canal and right neural foramen are patent. Mild left foraminal stenosis. L5-S1: No central canal or neural foraminal stenosis. IMPRESSION: 1. Mild discogenic degeneration at L4-L5 with resultant mild left foraminal stenosis. 2. Patent central canal. 3. No abnormal enhancement, bone marrow or soft tissue edema. ACT 112: Negative or not required by law. The above report was generated using voice recognition software. It may contain grammatical, syntax o r spelling errors. Electronically signed by: Vicente Becerril M.D. 02/24/2024 1:57 PM
[2024-02-24] MEDS ORDERED: ONDANSETRON INJ 2 MG/ML 2 ML VIAL IV PRN (15:05)
[2024-02-24] MEDS ORDERED: FLUTICASONE PROPIONATE NA SPR 16 GM BTL PRN (15:05)
[2024-02-24] MEDS ORDERED: MECLIZINE 12.5 MG TAB PO PRN (15:05)
[2024-02-24] MEDS ORDERED: MELATONIN 3 MG TAB PO PRN (15:05)
[2024-02-24] MEDS: ACETAMINOPHEN 325 MG TAB PO PRN (18:42)
[2024-02-24] MEDS: KETOROLAC TROMETHAMINE 15 MG/ML VIAL IV PRN (20:18)
[2024-02-25 06:15] LABS: Basophils # (auto) 0.01 K/uL (0.00-0.20); Basophils % (auto) 0.1 %; Eosinophils # (auto) 0.09 K/uL (0.00-0.50); Eosinophils % (auto) 1.3 %; Hematocrit (blood only) 40.3 % (37.0-47.0); Hemoglobin 13.6 g/dl (12.0-16.0); Immature Granulocytes # (auto) 0.03 K/uL (0.01-0.20); Immature Granulocytes % (auto) 0.4 %; Lymphocytes # (auto) 2.05 K/uL (1.20-3.40); Lymphocytes % (auto) 29.2 %; Mean Corpuscular Hemoglobin 30.4 pg (25.0-34.0); Mean Corpuscular Hgb Conc 33.7 g/dL (32.0-36.0); Mean Corpuscular Volume 90.2 fL (80.0-100.0); Mean Platelet Volume 9.1 fL (9.4-12.4); Monocytes # (auto) 0.52 K/uL (0.11-0.59); Monocytes % (auto) 7.4 %; Neutrophils # (auto) 4.31 K/uL (1.40-6.50); Neutrophils % (auto) 61.6 %; Platelet Count 249 K/uL (130-400); RDW Coefficient of Variation 13.4 % (11.5-14.5); RDW Standard Deviation 44.4 fL (36.4-46.3); Red Blood Count 4.47 M/uL (4.20-5.40); White Blood Count 7.01 K/ul (4.8-10.8)
--- NOTE | 2024-02-25 06:16 | Electrocardiogram Report ---
Test Reason : Blood Pressure : */* mmHG Vent. Rate : 92 BPM Atrial Rate : 92 BPM P-R Int : 160 ms QRS Dur : 84 ms QT Int : 348 ms P-R-T Axes : 38 -15 26 degrees QTcB Int : 430 ms Normal sinus rhythm Normal ECG No previous ECGs available Confirmed by Az Waite ([id number]) on 02/25/2024 6:16:00 AM Referred By: Confirmed By: Az Waite
[2024-02-25 06:35] LABS: BUN Creatinine Ratio 12.7 (10-20); C Reactive Protein 7.14 mg/dl (0-0.5); Calcium 8.7 mg/dl (8.6-10.3); Creatinine Clr Calc Pharmacy 131.7 ml/min; Potassium 4.4 mmol/L (3.5-5.1)
[2024-02-25 07:38] VITALS: BP 121/86; PULSE 85; RESP 16; TEMP 97.9; O2SAT 97
--- NOTE | 2024-02-25 10:54 | Discharge Summary ---
Discharge Summary Date of Service February 25, 2024 Principal Dx & Hospital Course #1 = Principal Diagnosis (1) Febrile illness: Intermittent fever up to 104 F that started on Monday 02/19. She also endorses chills, night sweats, rigors, and a sharp pain in her left posterior rib cage with deep breaths. Patient's initial labs and imaging appear reassuring/unremarkable - No leukocytosis; negative procalcitonin and lactate. [facility]/Strep negative. Biofire negative. - initial tick panel negative, anaplasmosis pending - blood cultures: negative at 24 hours - EBV/CMV pending Chest CTA without evidence of pulmonary embolism Patient has remained afebrile overnight and feeling much better. Does report multiple illness going around home/work with small children and poor sleep and increased stress. Feeling better this morning and eager to go home, discussed importance of supportive care, hydration and well balanced diet. PCP follow up to go over pending testing. (2) Urinary incontinence: Patient reports she has been "dribbling" urine in the setting of her fever While she does have a h/o dribbling stress incontinence - this has gotten worse in the last few days. Soaking underwear but not her pants. - given negative and progressive cough over the last few days, likely worsening off her stress incontinence, and id suspect some prolapse. Recommend kegels and pelvic floor PT Patient denies saddle anesthesia A/P CT reveals no acute abnormalities or evidence of kidney stone/pyelonephritis Lumbar MRI: mild disocgenic degeneration at L4-L5 with resultant mild left foraminal stenosis. no signs of infection. Thoracic MRI: mild cystic dilation of central thoracic spinal cord at T9-T10. No signs of infection or significant degenerative changes - possible syrinx, but no balance/weakness/tingling issues. If worsens consider follow up with Dr. Campos Plan Dispo: discharge to home today, close PCP follow up Notes For Next Care Provider recommend pelvic floor PT consider Dr. Campos follow up for possible syrinx if worsening multiple labs pending Medication Changes From Visit supportive care Admission HPI Per Admitting Provider Carolin is a 38-year-old female with PMH of vertigo, hypercholesteremia, and prediabetes. She presented on 02/23 for a febrile illness that developed on Monday 02/19. Her fever got up to 104 F on Thursday and lasted approximately 14 hours before breaking. She is then had intermittent fevers since this time. She has been rotating ibuprofen and Tylenol [id number] every 3-4 hours, which she is also taking for her back/left flank pain. She reports that taking deep breaths causes a sharp pain in her left middle back. No prior history of DVT/PE. No recent injuries to the chest wall or back to her knowledge. Additionally, she reports she has had some episodes of urinary incontinence; she has been "dribbling" urine since her fever started. She does have a history of leaking urine ever since she had her kids whenever she coughs or sneezes, however she specifically says that she has been dribbling urine without coughing and sneezing while she has been sick. She denies saddle anesthesia. While she does endorse generalized bodyaches, joint pain, and neck pain on the left side, she denies photophobia. Her children have recently been sick; her 8-main old recently got antibiotics for an ear infection, and her 4-year-old has been having a runny nose at daycare. She denies smoking, tobacco use, recent alcohol use. No supplemental oxygen or CPAP at baseline. She has had MRIs in the past and reports no metal in her body; no pacemaker. Patient is tachycardic around 103 bpm at time admission; vitals otherwise stable. ED course: NSS 1000 mL IV x 2 Toradol 10 mg IV Lorazepam 0.5 mg SL ROS: Patient endorses fever, chills, night-sweats, rigors, mild headaches, congestion, dry cough, chest pressure, back pressure, body aches, joint pain, pleuritic CP (causes "stabbing" pain in her left middle back, close to the bottom of her rib cage), nausea, and diarrhea (started this week). Patient denies lightheadedness, dizziness, rashes, tickbites, photophobia, hemoptysis, abdominal pain, vomiting, melena, blood in the urine/stool, burning with urination, or numbness/tingling in the arms or legs. Discharge Exam General: NAD, VS as above, sitting in bed, plesant HEENT: + Nasal congestion Resp: normal respiratory effort, lungs clear to auscultation CV: RRR, no murmur, Abd: normal bowel sounds, non tender, no hepatosplenomegaly Extremities: Moves all extremities, no edema. strength intact, ambulating without issue Neuro: A&O x3, Skin: intact, no lesions noted Discharge Plan Discharge Items Patient Disposition: Home - Self-Care Reason For Visit: FEVER, UNINARY INCONTINENCE Discharge Diagnosis: Febrile illness - likely viral Activity: Resume your previous activity Non-emergency contact: Primary Care Provider Call non-emergency contact if: you have any medication questions, your symptoms worsen, your pain is worsening, your pain is unusual for you and your tempera ture is above 101 Follow-up/Referrals: Esha Greene CRNP [Primary Care Provider] - 03/08/24 12:00 pm (Follow up with 7- 10 days ) Diet: Regular Addtl Attending Provider Instructions: Ms. Conner, You were hospitalized after having a prolonged febrile illness and concerns for urinary incontinence. We have done extensive testing that did not show any cause of your fevers. Including MRI of thoracic and lumbar spine, CT of chest and CT of the abdomen and pelvis. Mostly likely cause seems to be viral illness that you have likely caught from your children/work environment. Your inflammatory markers are downtrending which is encouraging. The best thing to do for treatment is supportive care - making sure you are staying well hydrated and eating a balance/nourishing diet focusing on protein - getting adequate rest - practice good hand hygiene, avoid sharing beverages with kiddos when they are sick - consider sleeping with a humidifier to help with congestion - can take mucinex or tylenol to help with symptoms You have multiple tests pending including CMV, EBV, tick studies, blood cultures, etc. It is very important that you have a follow up appointment with your PCP to be able to go over all of these results. In regards to the urinary incontinence, your pelvic floor has gotten weaker with continual coughing. You should work on kegel exercises and would recommend you attend pelvic floor therapy. If that does not work with your schedule, looking up exercises online and working to strengthen your core will also help. Activity: You can do normal everyday activities as your body allows. Take rest breaks if you feel tired. Do not overexert. Stop activity if you have pain, shortness of breath or feel dizzy. Follow-up appointments: Make an appointment with your primary care physician within one week of discharge. A copy of this summary will be sent to them. Every time you see your primary care physician, or any other doctor, bring your medication list, and a list of questions. CONTACT YOUR PRIMARY CARE PROVIDER if you experience any of the following: Shortness of breath or difficulty breathing Fevers or chills Feeling tired with normal activity or experiencing dizziness or fainting Difficulty following your treatment plan, or difficulty taking medications CALL 911 OR GO TO THE EMERGENCY DEPARTMENT if you experience any of the following: Severe abdominal pain or nausea/vomiting Severe chest pain, or chest pain that radiates (moves) to your jaw or arm Sudden, severe shortness of breath or difficulty breathing Thank you for allowing us to participate in your care. jerrica Sommers PA-C Pending Studies at Discharge: Yes (blood cultures, CMV, EBV, anaplasmosis ) Stand-Alone Forms: My [facility] Medications and DC Order Prescriptions: Continued multivitamin Tablet 1 tab PO DAILY meclizine 12.5 mg tablet 12.5 mg PO BID PRN (Reason: vertigo) Qty: 30 0RF acetaminophen 500 mg Tablet 500 mg PO Q6H PRN (Reason: Pain) Rx Instructions: otc ibuprofen 200 mg Tablet 200 mg PO Q6H PRN (Reason: Pain) Rx Instructions: otc Beef Organ Supplement 1 tab PO DIRECTED Rx Instructions: otc Green Supplement 1 tab PO DIRECTED Rx Instructions: OTC fluticasone propionate [Flonase Allergy Relief] 50 mcg/actuation spray,suspension 1 spray intranasal DAILY PRN (Reason: allergies) Rx Instructions: administer into each nostril ipratropium bromide 21 mcg (0.03 %) spray,non-aerosol 2 spray intranasal TID PRN (Reason: allergies) Rx Instructions: administer into each nostril cholecalciferol (vitamin D3) 1,250 mcg (50,000 unit) capsule 50,000 unit PO WK Rx Instructions: 50,000 units orally WEEKLY; Discharge Orders: Discharge Order (Routine); Ordered 02/25/24 Ordered By: Jerrica Gibbs/Other Patient Handouts: Adult Self-Care for Colds, Pelvic Floor Muscle Exercises Admission Data Admit Date/Time: 02/24/24 14:18 Attending Provider: Kwaku Mulligan Admit Provider: Pedro Hernández Primary Care Provider: Esha Greene Other Providers: Pedro Hernández Other Interventions: Discharge Summary Assessment (RN) Last Done: 02/25/24 11:13 Hospital Stay Data Consultations 02/24/24 10:56 ED Decision to Admit Stat Diagnostic Imagining Performed 02/24/24 07:50 CT abd pelvis IV con only Stat CT angio chest PE protocol Stat 02/24/24 10:31 MR lumbar spine wo/w con Stat 02/24/24 11:25 MR thoracic spine wo/w con Stat Pending Results Patient Have Any Pending Studies at Discharge: Yes (blood cultures, CMV, EBV, anaplasmosis ) Discharge Instructions Given to Patient (Per Discharging Provider) Ms. Conner, Martin were hospitalized after having a prolonged febrile illness and concerns for urinary incontinence. We have done extensive testing that did not show any cause of your fevers. Including MRI of thoracic and lumbar spine, CT of chest and CT of the abdomen and pelvis. Mostly likely cause seems to be viral illness that you have likely caught from your children/work environment. Your inflammatory markers are downtrending which is encouraging. The best thing to do for treatment is supportive care - making sure you are staying well hydrated and eating a balance/nourishing diet focusing on protein - getting adequate rest - practice good hand hygiene, avoid sharing beverages with kiddos when they are sick - consider sleeping with a humidifier to help with congestion - can take mucinex or tylenol to help with symptoms You have multiple tests pending including CMV, EBV, tick studies, blood cultures, etc. It is very important that you have a follow up appointment with your PCP to be able to go over all of these results. In regards to the urinary incontinence, your pelvic floor has gotten weaker with continual coughing. You should work on kegel exercises and would recommend you attend pelvic floor therapy. If that does not work with your schedule, looking up exercises online and working to strengthen your core will also help. Activity: You can do normal everyday activities as your body allows. Take rest breaks if you feel tired. Do not overexert. Stop activity if you have pain, shortness of breath or feel dizzy. Follow-up appointments: Make an appointment with your primary care physician within one week of discharge. A copy of this summary will be sent to them. Every time you see your primary care physician, or any other doctor, bring your medication list, and a list of questions. CONTACT YOUR PRIMARY CARE PROVIDER if you experience any of the following: Shortness of breath or difficulty breathing Fevers or chills Feeling tired with normal activity or experiencing dizziness or fainting Difficulty following your treatment plan, or difficulty taking medications CALL 911 OR GO TO THE EMERGENCY DEPARTMENT if you experience any of the following: Severe abdominal pain or nausea/vomiting Severe chest pain, or chest pain that radiates (moves) to your jaw or arm Sudden, severe shortness of breath or difficulty breathing Thank you for allowing us to participate in your care. jerrica Sommers PA-C Total Time Total Time Spent Total Time Spent (In Minutes): Time spent day of discharge 35 minutes including direct patient care, medication reconciliation, documentation, review of labs and images, and coordination of care. Coding Level of Care Code 81933 INP/OBS DISCH >30 MIN Diagnoses Febrile illness R50.9 Urinary incontinence R32
[2024-02-26 14:02] LABS: CMV IgG Antibody >10.00 U/mL; CMV IgM Antibody <30.00 AU/mL
== END 2024-02-25 13:51 | disposition home or self-care (01) ==
LOC: EDINP 07:27 → ED 07:27 → SUATTDRO 14:18 → 3E 16:08